=== PATIENT | female | born 1995 | race Caucasian/White ===

== ENCOUNTER 2019-03-26 16:42 | Emergency (ER) | payer SELFPAY ==
--- NOTE | 2019-03-26 17:23 | EDM.PDOC ---
<Ritesh Wallace - Last Filed: 03/26/19 17:24> ED HPI GENERAL MEDICAL PROBLEM - General Chief Complaint: Skin Complaint Stated Complaint: SKIN COMPLAINT Time Seen by Provider: 03/26/19 16:53 Source of Information: Reports: Patient History Limitations: Reports: No Limitations - History of Present Illness INITIAL COMMENTS - FREE TEXT/NARRATIVE: 23 year old female presents to the ed with complaints of a pimple that started 4 days ago. She said she tried to pop it and did not get anything out. Pt states that this morning it had gotten bigger and she tried to pop it again and got pirulent white drainage out of it. It is now the size of a marble. Pt also has erythema and edema noted to left side of nose and under the eye. Pt states that it is very painful to palpation. Pt has had chills x 2 days as well as nausea and vomiting. Diarrhea started today. Pt states she has a history of staph infection in the past. Left Face/Facial Pain Score (Numeric/FACES): 7 Left Shoulder Pain Score (Numeric/FACES): 5 - Related Data Allergies Allergy/AdvReac Type Severity Reaction Status Date / Time Sulfa (Sulfonamide Allergy Anaphylactic Verified 03/26/19 16:54 Antibiotics) Shock Home Meds: Home Meds Doxycycline [Vibramycin] 100 mg PO BID #20 cap 03/26/19 [Rx] OXcarbazepine [Trileptal] 600 mg PO TID 03/26/19 [History] Past Medical History Musculoskeletal History: Reports: Other (See Below) Other Musculoskeletal History: L4 L5 issues Psychiatric History: Reports: Anxiety, Depression - Past Surgical History Female Surgical History: Reports: Other (See Below) Other Female Surgeries/Procedures: ruptured ovairan cysts Social & Family History - Tobacco Use Smoking Status *Q: Current Every Day Smoker Years of Tobacco use: 9 Packs/Tins Daily: 0.5 - Caffeine Use Caffeine Use: Reports: Tea - Recreational Drug Use Recreational Drug Type: Reports: Marijuana/Hashish ED ROS GENERAL - Review of Systems Review Of Systems: ROS reveals no pertinent complaints other than HPI. Constitutional: Reports: Chills HEENT: Reports: No Symptoms Respiratory: Reports: No Symptoms Cardiovascular: Reports: No Symptoms Endocrine: Reports: No Symptoms GI/Abdominal: Reports: Diarrhea, Nausea, Vomiting : Reports: No Symptoms Musculoskeletal: Reports: No Symptoms Skin: Reports: Wound (left shoulder-marble sized open area without pirulent drainage) Neurological: Reports: No Symptoms Psychiatric: Reports: No Symptoms Hematologic/Lymphatic: Reports: No Symptoms Immunologic: Reports: No Symptoms ED EXAM, SKIN/RASH Exam: See Below Exam Limited By: No Limitations General Appearance: Alert, WD/WN, No Apparent Distress Eye Exam: Bilateral Eye: PERRL Ears: Normal External Exam, Normal Canal, Hearing Grossly Normal, Normal TMs Nose: Normal Inspection, No Blood Throat/Mouth: Normal Inspection Head: Atraumatic, Normocephalic Neck: Normal Inspection Respiratory/Chest: No Respiratory Distress, Lungs Clear, Normal Breath Sounds, No Accessory Muscle Use, Chest Non-Tender Cardiovascular: Normal Peripheral Pulses, Regular Rate, Rhythm, No Edema, No Murmur GI/Abdominal: Normal Bowel Sounds, Soft, Non-Tender (Female) Exam: Deferred Rectal (Female) Exam: Deferred Back Exam: Normal Inspection Extremities: Normal Inspection, Normal Range of Motion, No Pedal Edema Neurological: Alert, Oriented, Normal Cognition Psychiatric: Normal Affect, Normal Mood Skin: Warm, Dry, Normal Color, Wound/Incision (left facial cellulitis from bridge of nose to below the eye-marble sized ulcer to left shoulder) Location, Skin: Face Characteristics: Other (central ulceration) Associated features: Warmth, Tenderness, Swelling, Inflammation Lymphatic: No Adenopathy Course - Vital Signs Last Recorded V/S: Last Vital Signs Temp 98.6 F 03/26/19 16:52 Pulse 113 H 03/26/19 16:52 Resp 20 03/26/19 16:52 BP 125/101 H 03/26/19 16:52 Pulse Ox - Orders/Labs/Meds Orders: Active Orders 24 hr Category Date Time Status CULTURE WOUND [RM] Stat Lab 03/26/19 17:25 Ordered - Re-Assessments/Exams Free Text/Narrative Re-Assessment/Exam: 03/26/19 17:30 I ordered a wound culture on left shoulder. Departure - Departure Disposition: Home, Self-Care 01 Clinical Impression: Abscess Cellulitis Qualifiers: Site of cellulitis: face Qualified Code(s): L03.211 - Cellulitis of face - Discharge Information Prescriptions: Doxycycline [Vibramycin] 100 mg PO BID #20 cap Referrals: PCP,None [Primary Care Provider] - Lynette Allen PA-C [Physician Courtesy Driver] - 1 Week Forms: ED Department Discharge Additional Instructions: Take the doxycycline 2 times per day for 10 days. Put warm compresses on the affected area 3 times per day for 5 days. Take motrin or tylenol for pain. Please return if you are worse. <Jovan Aldrich - Last Filed: 03/26/19 17:45> ED HPI GENERAL MEDICAL PROBLEM - History of Present Illness Onset: Gradual Duration: Day(s): Location: Reports: Other (Left shoulder) Quality: Reports: Sharp Severity: Mild Improves with: Reports: None Worsens with: Reports: None Associated Symptoms: Reports: No Other Symptoms Course - Re-Assessments/Exams Free Text/Narrative Re-Assessment/Exam: 03/26/19 17:39 I examined the patient myself and I agree with Ritesh's assessment and plan. I have ordered a culture and I will get her on some doxycycline. Departure - Departure Time of Disposition: 17:40 Condition: Good - Discharge Information *PRESCRIPTION DRUG MONITORING PROGRAM REVIEWED*: No *COPY OF PRESCRIPTION DRUG MONITORING REPORT IN PATIENT FREDDIE: No
== END 2019-03-26 17:52 | disposition home or self-care (01) ==
LOC: JD.ED 16:42
DX: L02.01 Cutaneous abscess of face (principal); L03.211 Cellulitis of face; F17.210 Nicotine dependence, cigarettes, uncomplicated; Z88.2 Allergy status to sulfonamides
CPT/HCPCS: 87070; 87077; 87186; 99283